=== PATIENT | female | born 1985 | race Caucasian/White ===

== ENCOUNTER 2024-06-28 08:40 | Emergency (ER) | payer BC ==
[~2024-06-28] VITALS: Ht 157.5 cm; Wt 92.6 kg
[~2024-06-28 08:40] MED LIST: ONDA-243 PO
--- NOTE | 2024-06-28 08:56 | Physician Documentation ---
History of Present Illness ~ Chief Complaint: Abdominal Pain Stated Complaint: ABD PAIN Time Seen by MD: 11:43 Primary Medical Doctor: [facility] This 39-year-old female presents with complaints of recent diagnosed diverticulitis and ongoing antibiotics administration. The patient reports that over the past three days she has developed a right lower quadrant pain that is radiating down the front of her right leg. She states the pain has been constant and will worsen when she moves around or flexes her right hip. She states that she has not but did have a little bit of constipation which is now resolved. She denies any urinary symptoms, denies any vaginal bleeding or discharge or any other associated symptoms. Medication Reconciliation Allergies: Coded Allergies: No Known Allergies (Unverified , 06/28/24) Scheduled PRN ONDANSETRON ODT 4mg tablet (Ondansetron Odt), 1 TAB PO Q6H PRN PRN for nausea/vomiting Review of Systems All Other Systems at this time: Reviewed and Negative ROS As stated above in the HPI, otherwise all systems are reviewed and negative. Physical Exam Vital Signs: Temperature: 97.2, Source: Temporal, Heart Rate: 78, Respiratory Rate: 18, BP: 119/72, Pulse Oximetry: 98, Weight: 92.600 Physical Exam I have reviewed the triage vitals. CONST: Well developed and well nourished. In no acute distress HENT: Head Atraumatic EYES: Pupils are equal, round and reactive to light. Normal conjunctiva NECK: Normal range of motion. Supple. CARDIO: Normal rate and regular rhythm. No murmurs, rubs, or gallops. S1, S2. PULM/CHEST: No respiratory distress. Lungs clear to auscultation. No wheeze ABD: Soft, tenderness to palpation over the right lower quadrant. Nondistended. Bowel sounds normal. No guarding. : Exam deferred MSK: No edema. No deformity. NEURO: Alert and oriented to person, place and time. Moving all extremities SKIN: Warm and dry. PSYCH: Normal mood and affect. Good eye contact. Progress Results/Orders Results/Orders Orders - CALI MAGALLON MD Us Pelvis/With Duplex (06/28/24 12:28) Ct Abdomen Pelvis (06/28/24 14:00) Completed Orders - CALI MAGALLON MD Hcg, Ur Ql (06/28/24 08:51) Cbc/Diff (06/28/24 08:51) BMP (06/28/24 08:51) Lipase (06/28/24 08:51) CMP (06/28/24 08:51) Ua W/Microscopic, Cult If Ind (06/28/24 11:04) Us Pelvis/With Duplex (06/28/24 12:28) Ct Abdomen Pelvis (06/28/24 14:00) Normal Saline 1000ml (Sodium Chloride 10 (06/28/24 12:30) Iohexol 300mg/Ml 100ml Inj. (Omnipaque-3 (06/28/24 13:01) Electrocardiogram (06/28/24 12:43) Medications Received in ER Medications (Trade) Dose Ordered Sig/Fransisco Route PRN Reason Start Time Stop Time Status Last Admin Dose Admin Sodium Chloride 1,000 ml @ 1,000 mls/hr ONCE ONCE IV 06/28/24 12:30 06/28/24 13:29 DC 06/28/24 13:53 1,000 MLS/HR Vital Signs 06/28/24 06/28/24 06/28/24 08:47 10:47 11:00 Temp 97.2 Pulse 78 70 Resp 18 12 12 B/P (MAP) 119/72 122/87 (99) Pulse Ox 98 100 Laboratory Tests Test 06/28/24 09:34 06/28/24 11:04 White Blood Count 5.6 Red Blood Count 4.80 Hemoglobin 14.2 Hematocrit 42.5 Mean Corpuscular Volume 88.4 Mean Corpuscular Hemoglobin 29.6 Mean Corpuscular Hemoglobin Concent 33.4 Red Cell Distribution Width 13.6 Platelet Count 261 Mean Platelet Volume 9.5 Neutrophils (%) (Auto) 59.2 Lymphocytes (%) (Auto) 32.3 Monocytes (%) (Auto) 5.8 Eosinophils (%) (Auto) 1.9 Basophils (%) (Auto) 0.8 Neutrophils # (Auto) 3.3 Lymphocytes # (Auto) 1.8 Monocytes # (Auto) 0.3 Eosinophils # (Auto) 0.1 Basophils # (Auto) 0.0 CBC Comment Sodium Level 138 Potassium Level 3.9 Chloride Level 105 Carbon Dioxide Level 28.0 Anion Gap 5 L Blood Urea Nitrogen 13 Creatinine 0.64 Estimated GFR/1.73 m2 > 90 BUN/Creatinine Ratio 20.3 H Glucose Level 127 H Calcium Level 8.5 Total Bilirubin 0.5 Aspartate Amino Transf (AST/SGOT) 21 Alanine Aminotransferase (ALT/SGPT) 32 Alkaline Phosphatase 68 Total Protein 6.8 Albumin 3.4 Globulin 3.4 Albumin/Globulin Ratio 1.0 L Lipase 25 Chemistry Comments Urine Specimen Description Cln catch midstream Urine Color Yellow Urine Clarity Clear Urine pH 7.0 Urine Specific [place] 1.010 Urine Protein Negative Urine Glucose (UA) Negative Urine Ketones Negative Urine Occult Blood Trace-intact Urine Nitrite Negative Urine Bilirubin Negative Urine Urobilinogen 0.2 Urine Leukocyte Esterase Negative Urine RBC 0-2 Urine WBC 0-4 Urine Squamous Epithelial Cells Moderate Urine Bacteria 1+ Urine Culture Indicated Not ind Volume Urine Centrifuged 10 ml Urine HCG, Qualitative Negative Urine Comment EKG/XRAY/CT/US/VASC/MRI CT : Impression CT ABDOMEN AND PELVIS WITH CONTRAST CLINICAL HISTORY: RLQ pain- r/o appy TECHNIQUE: TECHNIQUE: Multiple contiguous axial images of the abdomen and pelvis were performed with intravenous contrast.. The images were reformatted to generated coronal and sagittal reconstructions. 100 cc of Omnipaque 350 contrast was injected intravenously. Radiation optimization: All CT scans at this facility use at least one of these dose optimization techniques: automated exposure control mA and/or kV adjustment per patient size (includes targeted exams where dose is matched to clinical indication) or iterative reconstruction. Radiation Dose Information: CT Dose: CTDI volume is 35 mGy. Dose-length product is 1808 mGy*cm Comparison: CT CT ABDOMEN PELVIS on DOS: 04/26/24 FINDINGS: There are stable few punctate nonobstructive calculi in the lower pole of the left kidney. There is no right renal calculus. The liver, gallbladder, pancreas, adrenal glands, and spleen appear within normal limits. There is no evidence of abdominal lymphadenopathy. There is no free fluid or free air. The stomach appears within normal limits. The small and large bowel loops demonstrate normal caliber and distribution.. Normal-appearing appendix is seen in the right lower quadrant abdomen with no associated inflammatory changes. There are diverticula in the sigmoid colon without evidence of acute diverticulitis. The abdominal aorta and IVC appear within normal limits. The bladder appears unremarkable. Uterus appears within normal limits. There is a 2.3 cm cyst in the right ovary. There is small amount of free fluid in the cul-de-sac. There is no evidence of a pelvic mass or lymphadenopathy. Lung bases are clear. There is no acute osseous abnormality. IMPRESSION: 1. There is no acute process in the abdomen and pelvis 2. 2.3 cm right ovarian cyst. There is small amount of fluid in the pelvis. 3. Sigmoid diverticulosis without evidence of acute diverticulitis. 4. Redemonstrated few punctate nonobstructive left lower pole renal calculi. Ultrasound : Impression INDICATION: right pelvic pain TECHNIQUE: Multiple real-time grayscale transabdominal sonographic images along with color and duplex Doppler of the uterus and ovaries were obtained. COMPARISON: None FINDINGS: The uterus measures 7.17 x 4.84 x 4.64 cm. There is an isoechoic intramural mass in the lower uterine segment measuring 3.22 x 3.39 x 2.78 cm. The endometrial stripe measures 11.5 mm. The right ovary measures 4.9 x 3 by 3.17 cm. Anechoic lesion in the right ovary measuring 2.04 x 1.73 x 2.17 cm most likely a follicle. The left ovary measures 3.7 x 2.87 x 2.3 5 cm. Subsequent color and duplex Doppler interrogation of the ovaries demonstrated symmetric vascular flow to both ovaries, though this does not exclude the possibility of torsion due to the dual blood supply. IMPRESSION: 1. Uterus measures 7.2 x 4.8 cm. 2. There is a 3.22 by 3.39 x 2.78 cm intramural mass which is isoechoic in the lower uterine segment. May represent a fibroid. 3. 2 x 1.7 x 2.2 cm anechoic lesion in the right ovary may represent follicle. Medical Decision Making Additional Comment 39-year-old female presenting with right lower quadrant pain as well as lower back pain that radiates down her right leg. We did a workup which included CT of the abdomen and pelvis as well as pelvic ultrasound. Both imaging modalities did indicate a right ovarian cyst. Ultrasound did indicate a hypoechoic mass in the uterus which likely represents a fibroid. I informed the patient of these findings and advised her that she needs follow up with Gynecology for further assessment. Regarding her lower back pain and radiculopathy she may have a herniated disc that is causing this. I advised her that she needs to follow up with her primary care physician and get a MRI as an outpatient to further assess this. The meantime the patient's pain is improved. I advised her that she can take ibuprofen or Tylenol [id number] as needed for pain control. Monitor symptoms for improvement. Return to the ED with any worsening symptoms. Departure Disposition: 01 HOME / SELF CARE / HOMELESS Impression: Primary Impression: Ovarian cyst Additional Impressions: Fibroid, uterine Lumbar radiculopathy Condition: Improved Discharge Instructions: Lumbosacral Radiculopathy, Ovarian Cyst, Uterine Fibroids Referrals: NO PRIMARY CARE PROVIDER (PCP) Comments Follow-up with gynecology for further treatment of ovarian cyst and uterine fibroid. Follow up with primary care physician regarding lower back pain with radiating symptoms. Monitor symptoms for improvement and resolution. May take ibuprofen or Tylenol as needed for pain. Return to ED with any acutely worsening symptoms. Education Additional Comment Follow-up with gynecology for further treatment of ovarian cyst and uterine fibroid. Follow up with primary care physician regarding lower back pain with radiating symptoms. Monitor symptoms for improvement and resolution. May take ibuprofen or Tylenol as needed for pain. Return to ED with any acutely worsening symptoms. Signature Scribe Signature: 1 Attestation: 1 ALESHA VARGAS NP Jun 28, 2024 08:56 CALI MAGALLON MD Jun 28, 2024 12:32
[2024-06-28 09:50] LABS: BASOPHILS % (AUTO) 0.8 % (0-1); EOSINOPHILS # (AUTO) 0.1 X10'3 (0-0.9); EOSINOPHILS % (AUTO) 1.9 % (0-6); HEMATOCRIT 42.5 % (35.0-45.0); HEMOGLOBIN 14.2 g/dl (12.0-16.0); LYMPHOCYTES # (AUTO) 1.8 X10'3 (1.1-4.8); LYMPHOCYTES % (AUTO) 32.3 % (21-51); MEAN CORPUSCULAR HEMOGLOBIN 29.6 PG (27.0-31.0); MEAN CORPUSCULAR HGB CONC 33.4 g/dL (33.0-36.5); MEAN CORPUSCULAR VOLUME 88.4 FL (78-98); MEAN PLATELET VOLUME 9.5 FL (7.4-10.4); MONOCYTES # (AUTO) 0.3 X10'3 (0-0.9); MONOCYTES % (AUTO) 5.8 % (2-12); NEUTROPHILS # (AUTO) 3.3 X10'3 (1.8-7.7); NEUTROPHILS % (AUTO) 59.2 % (42-75); PLATELET COUNT 261 X10'3 (140-440); RED CELL DISTRIBUTION WIDTH 13.6 % (11.5-14.5); WHITE BLOOD COUNT 5.6 X10'3 (4.5-11.0)
[2024-06-28 10:18] LABS: ALANINE AMINOTRANSFERASE 32 U/L (12-78); ALBUMIN 3.4 G/DL (3.4-5.0); ALKALINE PHOSPHATASE 68 IU/L (46-116); ANION GAP 5 (8-16); ASPARTATE AMINO TRANSFERASE 21 U/L (10-37); BILIRUBIN,TOTAL 0.5 MG/DL (0.1-1.0); BLOOD UREA NITROGEN 13 MG/DL (7-18); BUN/CREATININE RATIO 20.3 (10.0-20.0); CALCIUM 8.5 MG/DL (8.5-10.1); CHLORIDE 105 MMOL/L (99-107); CREATININE 0.64 MG/DL (0.40-0.90); GLUCOSE 127 MG/DL (70-104); LIPASE 25 U/L (16-77); POTASSIUM 3.9 MMOL/L (3.5-5.1); SODIUM 138 MMOL/L (135-145); TOTAL PROTEIN 6.8 G/DL (6.4-8.2); eCRCL 93 ML/MIN; eGFR > 90 ML/MIN
[2024-06-28 11:38] LABS: BILIRUBIN,URINE NEGATIVE (Neg); CLARITY,URINE CLEAR (Clear); COLOR,URINE YELLOW (Yellow); GLUCOSE, URINE NEGATIVE (Neg); KETONES,URINE NEGATIVE (Neg); LEUKOCYTE ESTERASE ,URINE NEGATIVE (Neg); NITRITES, URINE NEGATIVE (Neg); OCCULT BLOOD,URINE TRACE-INTACT (Neg); PROTEIN,URINE NEGATIVE (Neg); UROBILINOGEN,URINE 0.2 E.U/dL (0.2-1.0)
[2024-06-28 11:40] LABS: URINE HCG NEGATIVE (NEG)
[2024-06-28 12:00] LABS: UA COLLECTION TYPE CLN CATCH MIDSTREAM
[2024-06-28 12:03] LABS: SQUAMOUS EPITHELIAL CELL,UR MODERATE /LPF (FEW)
[2024-06-28 12:05] LABS: BACTERIA,URINE 1+ /HPF (Neg); WBC,URINE 0-4 /HPF (0-4)
[2024-06-28 12:07] LABS: RBC,URINE 0-2 /HPF (0-2)
[2024-06-28] MEDS ORDERED: iohexol 300mg/ml 100ml inj. ONE (13:01)
--- NOTE | 2024-06-28 13:15 | ELECTROCARDIOGRAPH REPORT ---
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 Braulio Sepulveda Measurements Intervals [place] Rate: 65 P: 6 NV: 161 QRS: -2 QRSD: 89 T: -11 QT: 397 QTc: 413 Interpretive Statements Sinus rhythm Probable anterior infarct, age indeterminate Electronically Signed On 06-28-2024 19:02:[address] Braulio Sepulveda Please click the below link to view image of tracing.
[2024-06-28] MEDS: normal saline 1000ml 1,000 ML IV ONE (13:53)
--- NOTE | 2024-06-28 14:51 | RADIOLOGY REPORT ---
CT ABDOMEN AND PELVIS WITH CONTRAST CLINICAL HISTORY: RLQ pain- r/o appy TECHNIQUE: TECHNIQUE: Multiple contiguous axial images of the abdomen and pelvis were performed with intravenous contrast.. The images were reformatted to generated coronal and sagittal reconstructions. 100 cc of Omnipaque 350 contrast was injected intravenously. Radiation optimization: All CT scans at this facility use at least one of these dose optimization jeromy hniques: automated exposure control mA and/or kV adjustment per patient size (includes targeted exam s where dose is matched to clinical indication) or iterative reconstruction. Radiation Dose Information: CT Dose: CTDI volume is 35 mGy. Dose-length product is 1808 mGy*cm Comparison: CT CT ABDOMEN PELVIS on DOS: 04/26/24 FINDINGS: There are stable few punctate nonobstructive calculi in the lower pole of the left kidney. There is n o right renal calculus. The liver, gallbladder, pancreas, adrenal glands, and spleen appear within normal limits. There is no evidence of abdominal lymphadenopathy. There is no free fluid or free air. The stomach appears within normal limits. The small and large bowel loops demonstrate normal caliber and distribution.. Normal-appearing appendix is seen in the right lower quadrant abdomen with no ass ociated inflammatory changes. There are diverticula in the sigmoid colon without evidence of acute di verticulitis. The abdominal aorta and IVC appear within normal limits. The bladder appears unremarkable. Uterus appears within normal limits. There is a 2.3 cm cyst in the right ovary. There is small amount of free fluid in the cul-de-sac. There is no evidence of a pelvic mass or lymphadenopathy. Lung bases are clear. There is no acute osseous abnormality. IMPRESSION: 1. There is no acute process in the abdomen and pelvis 2. 2.3 cm right ovarian cyst. There is small amount of fluid in the pelvis. 3. Sigmoid diverticulosis without evidence of acute diverticulitis. 4. Redemonstrated few punctate nonobstructive left lower pole renal calculi. HS:Y
--- NOTE | 2024-06-28 14:56 | RADIOLOGY REPORT ---
INDICATION: right pelvic pain TECHNIQUE: Multiple real-time grayscale transabdominal sonographic images along with color and duplex Doppler of the uterus and ovaries were obtained. COMPARISON: None FINDINGS: The uterus measures 7.17 x 4.84 x 4.64 cm. There is an isoechoic intramural mass in the lo wer uterine segment measuring 3.22 x 3.39 x 2.78 cm. The endometrial stripe measures 11.5 mm. The right ovary measures 4.9 x 3 by 3.17 cm. Anechoic lesion in the right ovary measuring 2.04 x 1.7 3 x 2.17 cm most likely a follicle. The left ovary measures 3.7 x 2.87 x 2.3 5 cm. Subsequent color and duplex Doppler interrogation of the ovaries demonstrated symmetric vascular flow to both ovaries, though this does not exclude the possibility of torsion due to the dual blood suppl y. IMPRESSION: 1. Uterus measures 7.2 x 4.8 cm. 2. There is a 3.22 by 3.39 x 2.78 cm intramural mass which is isoechoic in the lower uterine segment. May represent a fibroid. 3. 2 x 1.7 x 2.2 cm anechoic lesion in the right ovary may represent follicle.
[2024-06-28 15:56] VITALS: BP 132/70; PULSE 69; RESP 14; TEMP 98; O2SAT 97
== END 2024-06-28 15:58 | disposition home or self-care (01) ==
LOC: ER 08:42
DX: N83.201 Unspecified ovarian cyst, right side (principal); D25.9 Leiomyoma of uterus, unspecified; M54.16 Radiculopathy, lumbar region
CPT/HCPCS: 36415; 74177; 76856; 80053; 81001; 81025; 83690; 85025; 93005; 93976; 96360; 99285; J7030; Q9967